=== PATIENT | male | born 1980 | race Two or more races ===

== ENCOUNTER 2018-03-28 02:31 | Emergency (ER) | payer SELFPAY ==
[~2018-03-28] VITALS: Ht 175.3 cm; Wt 95.3 kg
[2018-03-28] MEDS ORDERED: IBUPROFEN 600 MG TAB PO ONE (04:30)
[2018-03-28] MEDS ORDERED: HYDROcodone-ACET 7.5/325MG TAB PO ONE (04:30)
[2018-03-28 06:44] VITALS: BP 124/86
== END 2018-03-28 06:47 | disposition home or self-care (01) ==
LOC: EDBD 02:31 → ER 02:35
DX: S92.061A Displaced intraarticular fracture of right calcaneus, initial encounter for closed fracture (principal); W17.89XA Other fall from one level to another, initial encounter; Y93.39 Activity, other involving climbing, rappelling and jumping off; Y99.8 Other external cause status; Y92.096 Garden or yard of other non-institutional residence as the place of occurrence of the external cause
CPT/HCPCS: 29515; 73610; 73630